=== PATIENT | male | born 1960 | race Caucasian/White ===

== ENCOUNTER 2017-12-05 07:08 | Day surgery (SDC) | payer OTHER ==
[2017-12-05 08:31] LABS: PLATELET COUNT 102 10^3/uL (150-400)
[2017-12-05 08:39] LABS: INR 1.1 (0.83-1.16); PROTIME(PATIENT) 14.4 SEC (12.0-15.0)
[2017-12-05] MEDS ORDERED: fentaNYL 100 MCG/2 ML INJ IVP PRN (08:59)
[2017-12-05] MEDS ORDERED: GLUCAGON HCL 1 MG VIAL IVP PRN (08:59)
[2017-12-05] MEDS ORDERED: PROTAMINE SULFATE 50 MG/5 ML VIAL IVP PRN (08:59)
[2017-12-05] MEDS ORDERED: FLUMAZENIL 0.5 MG/5 ML MDV IVP PRN (08:59)
[2017-12-05] MEDS ORDERED: MIDAZOLAM 2 MG/2 ML VIAL IVP PRN (08:59)
[2017-12-05] MEDS ORDERED: NALOXONE HCL 0.4 MG/ML INJ IVP PRN (08:59)
[2017-12-05] MEDS ORDERED: MEPERIDINE 25 MG/ML SYR IVP PRN (08:59)
[2017-12-05] MEDS ORDERED: HEPARIN 10,000 UNIT/10 ML MDV (1,000 UNIT/ML) IVP PRN (08:59)
[2017-12-05] MEDS ORDERED: ALTEPLASE 2 MG VIAL IVP PRN (08:59)
[2017-12-05] MEDS ORDERED: NS 1,000 ML IV SCH (09:00)
[2017-12-05] MEDS ORDERED: MIDAZOLAM 2 MG/2 ML VIAL ONE (09:04)
[2017-12-05] MEDS ORDERED: fentaNYL 100 MCG/2 ML INJ ONE (09:04)
[2017-12-05] MEDS ORDERED: NALOXONE HCL 0.4 MG/ML INJ ONE (09:04)
[2017-12-05] MEDS ORDERED: FLUMAZENIL 0.5 MG/5 ML MDV IVP ONE (09:04)
[2017-12-05] MEDS ORDERED: LIDOCAINE 1% 300 MG/30 ML SDV ONE ×2 (09:54→10:20)
[2017-12-05] MEDS ORDERED: ACETAMINOPHEN 325 MG TAB PO PRN (10:58)
[2017-12-05] MEDS ORDERED: ONDANSETRON 4 MG/2 ML VIAL IVP PRN (10:58)
--- NOTE | 2017-12-05 11:00 | PDRADPN ---
Radiology Procedure Note Date of Procedure: 12/05/17 Radiologist: Patt Bull Anesthesia: IV Sedation Pre-op Diagnosis: thrombocytopenia Post-op Diagnosis: same Indication: bm bx Procedure: BM aspiration and biopsy done Finding(s): 20cc aspirate and one core obtained. Inf/Abcess present in the surg proc area at time of surgery?: No
[2017-12-05 11:27] VITALS: BP 164/77
== END 2017-12-05 11:37 | disposition home or self-care (01) ==
LOC: FIMAGING 07:08
PROVIDERS: ATTEND Physician Assistant
PROC: 07DR3ZX Extraction of Iliac Bone Marrow, Percutaneous Approach, Diagnostic (ICD-10-PCS; principal; 2017-12-05 10:39)
DX: D69.6 Thrombocytopenia, unspecified (principal); D64.9 Anemia, unspecified
CPT/HCPCS: 81479-90; 85060-90; 88184-90; 88185-91; 88237-90; 88262-90; J2250; J2310; J3010